=== PATIENT | male | born 1990 | race Caucasian/White ===

== ENCOUNTER 2025-05-09 23:45 | Emergency (ER) | payer BC, OTHER ==
[2025-05-10] LABS: BASOPHILS ABSOLUTE AUTO 0.0 x10^3/uL (0.0-0.2); BASOPHILS PERCENT AUTO 0.2 % (0.2-1.2); EOSINOPHILS ABSOLUTE AUTO 0.1 x10^3/uL (0.0-0.5); EOSINOPHILS PERCENT AUTO 0.6 % (0.0-4.0); IMMATURE GRAN ABSOLUTE AUTO 0.04 x10^3/uL (0.00-0.07); IMMATURE GRAN PERCENT AUTO 0.20 % (0.00-0.43); LYMPHOCYTES ABSOLUTE AUTO 1.7 x10^3/uL (1.0-4.8); LYMPHOCYTES PERCENT AUTO 9.8 % (25.0-50.0); MONOCYTES ABSOLUTE AUTO 0.8 x10^3/uL (0.0-0.8); MONOCYTES PERCENT AUTO 4.5 % (2.0-11.0); NEUTROPHILS ABSOLUTE AUTO 14.4 x10^3/uL (1.8-7.7); NEUTROPHILS PERCENT AUTO 84.7 % (50.0-80.0); PLATELET COUNT,PLT 304 x10^3/uL (130-400); RED BLOOD CELL COUNT 4.95 x10^6/uL (4.5-6.0); WHITE BLOOD CELL COUNT,WBC 17.0 x10^3/uL (4.0-10.0)
[2025-05-10 00:02] LABS: APPEARANCE,URINE TURBID (CLEAR); GLUCOSE,URINE NEGATIVE (NEGATIVE); OCCULT BLOOD,URINE LARGE (NEGATIVE)
[2025-05-10] MEDS: Ondansetron 4 MG/2 ML SDV IVPUSH ONE (00:02)
[2025-05-10 00:07] LABS: SQUAMOUS EPITHELIAL CELLS,UR NOT SEEN /HPF (NOT SEEN)
[2025-05-10 00:10] LABS: A/G RATIO 1.42; ALANINE AMINOTRANSFERASE,ALT 47 U/L (16-63); ASPARTATE AMNIOTRANSFERASE,AST 32 U/L (15-37); BILIRUBIN TOTAL 0.8 mg/dL (0.2-1.0); BLOOD UREA NITROGEN,BUN 19 mg/dL (7-18); CARBON DIOXIDE,CO2 29 mmol/L (21-32); CHLORIDE,CL 101 mmol/L (98-107); CREATININE 1.5 mg/dL (0.70-1.30); GLUCOSE RANDOM 132 mg/dL (70-99); POTASSIUM,K 3.8 mmol/L (3.5-5.1); PROTEIN TOTAL,TP 8.0 g/dL (6.4-8.2); SODIUM,NA 142 mmol/L (136-145)
[2025-05-10 00:11] LABS: ESTIMATED GFR 63 mL/min (>=60)
[2025-05-10] MEDS: Lactated Ringers 1,000 ML IV ONE (00:15)
[2025-05-10] MEDS: Ketorolac 15 MG/ML SDV IVPUSH ONE (00:22)
[2025-05-10] MEDS: Take Home: Ketorolac 10 MG Tab, 4 Tab Pack PO ONE (01:29)
[2025-05-10] MEDS: Take Home: Ondansetron 4 MG Tab.DIS, 5 Tab Pack PO ONE (01:29)
== END 2025-05-10 01:40 | disposition home or self-care (01) ==
LOC: SUPCPDRO 23:45 → VM.ED 23:45
DX: N13.2 Hydronephrosis with renal and ureteral calculous obstruction (principal)
CPT/HCPCS: 74176; 80053; 81001; 81003; 83690; 85025; 96361; 96374; 96375; 99284-25; A9270-GY; J1171; J1885; J2405; J7120; Q0162